=== PATIENT | male | born 1945 | race Caucasian/White ===

== ENCOUNTER 2016-05-06 07:48 | Emergency (ER) | payer MEDICARE, MEDICAID ==
[2016-05-06 08:08] VITALS: BP 161/86
--- NOTE | 2016-05-06 09:54 | UC ---
jesika Lake Timothy, scribed for Claire Arboleda MD on 05/06/16 at 0823 . Abdominal Pain Male HPI - HPI Summary HPI Summary: Luke Alcazar is a 71 yo male presenting to [facility] with 3/10 intermittent tingling and pain diffusely in his abd since the summer of 2015. He noticed 3 weeks ago a lump in the RLQ of his abdomen. He states the tingling can sometimes go down his right leg and up his right side to his mouth. He also states he has lost a lot of weight in the past 6 months. He denies any n/v/d. 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 He has a Hx of hernia, but denies any other pertinent MHx. - History of Current Complaint Stated Complaint: STOMACH PAIN TINGLING ON SIDE OF BODY Time Seen by Provider: 05/06/16 08:29 Hx Obtained From: Patient Onset/Duration: Gradual Onset, Lasting Weeks, Still Present Timing: Intermittent Episodes Lasting: - hours Severity Initially: Moderate Severity Currently: Moderate Pain Intensity: 3 Pain Scale Used: 0-10 Numeric Location: Diffuse, Discrete At: RLQ Radiates: No Character: Aching Aggravating Factor(s):: Nothing Alleviating Factor(s): Nothing Associated Signs And Symptoms: Positive: Other - weight loss, right sided body tingling. Negative: Constipation, Urinary Symptoms, Nausea, Vomiting, Diarrhea - Risk Factors Cardiac Risk Factors: Family History - Allergies/Home Medications Allergies/Adverse Reactions: Allergies Allergy/AdvReac Type Severity Reaction Status Date / Time Latex Allergy Eyes Verified 05/06/16 08:08 Itchy/Swollen/Red/Watery PMH/Surg Hx/FS Hx/Imm Hx - Additional Past Medical History Additional PMH: hernia Endocrine History Of: Denies: Diabetes, Thyroid Disease Cardiovascular History Of: Denies: Cardiac Disorders, Hypertension Respiratory History Of: Denies: COPD, Asthma GI/ History Of: Denies: Ulcer - Surgical History Surgical History: Yes Surgery Procedure, Year, and Place: Cataract 2011 - Family History Known Family History: Positive: Cardiac Disease, Other - no cancer or stroke; brother age 24 with rheumatic fever - Social History Alcohol Use: Occasionally Substance Use Type: Marijuana Smoking Status (MU): Never Smoked Tobacco Review of Systems Constitutional: Negative Skin: Negative Eyes: Negative ENT: Negative Respiratory: Negative Cardiovascular: Negative Gastrointestinal: Abdominal Pain - right side, Other - right sided abd lump Genitourinary: Negative Motor: Negative Neurovascular: Negative Musculoskeletal: Negative Neurological: Paresthesia - right side of abd, body, and mouth Psychological: Negative All Other Systems Reviewed And Are Negative: Yes Physical Exam Triage Information Reviewed: Yes Appearance: No Pain Distress, Well-Nourished, Ill-Appearing Vital Signs: Initial Vital Signs Temp 98.9 F 05/06/16 08:00 Pulse 112 05/06/16 08:00 Resp 18 05/06/16 08:00 BP 161/86 05/06/16 08:00 Pulse Ox 97 05/06/16 08:00 elevated BP noted, tachycardia noted Vital Signs Reviewed: Yes Eyes: Positive: Conjunctiva Clear ENT: Positive: Hearing grossly normal, TMs normal Neck: Positive: Supple, Nontender Respiratory: Positive: Chest non-tender, Lungs clear, Normal breath sounds, No respiratory distress Cardiovascular: Positive: RRR, No Murmur, Pulses Normal, Brisk Capillary Refill Abdomen Description: Positive: No Organomegaly, McBurney's Point Tenderness - and mass. Negative: Nontender - RLQ tenderness, Soft - 7 cm RLQ abd mass, Distended, Guarding, Hernia @, Peritoneal Signs, Pulsatile Mass Bowel Sounds: Positive: Present Musculoskeletal: Positive: Strength Intact, ROM Intact Neurological: Positive: Alert, Muscle Tone Normal Psychological Exam: Normal Skin Exam: Normal Abd Pain Male Course/Dx - Course Course Of Treatment: Luke Alcazar is a 71 yo male presenting to [facility] with right sided abd pain for several months, a lump on the right side of his abd 3 weeks ago, and tingling on his right side of his abd 3 weeks ago. After clinical examination, he will leave AMA to be seen at [facility]. - Differential Dx/Clinical Impression Differential Diagnosis/HQI/PQRI: Appendicitis, Constipation, Pancreatitis, Other - abdominal mass, internal hernia Provider Diagnoses: abdominal mass - Physician Notification/Consults Discussed Patient Care With: Sera Sanchez (PA at [facility]) - discussed PT condition, agrees to see Pt in [facility] Instructed by Provider To: MD Will See In ED Discharge - Discharge Plan Condition: Stable Disposition: AGAINST MEDICAL ADVICE Discharge Disposition Comment: will appear to [facility] by car Referrals: No Primary Care Phys,NOPCP [Primary Care Provider] - The documentation as recorded by the jesika dean Timothy accurately reflects the service I personally performed and the decisions made by me, Claire Arboleda MD.
== END 2016-05-06 08:53 | disposition left against medical advice (07) ==
LOC: UCEAST 07:48
DX: R19.03 Right lower quadrant abdominal swelling, mass and lump (principal); R63.4 Abnormal weight loss; R00.0 Tachycardia, unspecified; Z98.49 Cataract extraction status, unspecified eye; F12.90 Cannabis use, unspecified, uncomplicated
CPT/HCPCS: 99212; G0463

== ENCOUNTER 2016-05-06 09:12 | Emergency (ER) | payer MEDICARE, MEDICAID ==
--- NOTE | 2016-05-06 10:13 | ED ---
Abdominal Pain/Male - HPI Summary HPI Summary: 71M presents with abdominal pain for many months. He notice a lump in his abdomen at RLQ that feels like has gotten bigger. He states that his stools have gotten looser. He denies any dark tarry stools or blood in his stool. He denies any n/v or fever. He admits to unintentional weight loss and feels that he is loosing muscle mass for the past couple months. He denies any chest pain , SOB, decrease appetite. He has never had a colonoscopy and does not have a primary. He has not seen a doctor in many years. He states sometimes the pain in his RLQ goes to his back. He states he did have an inguinal hernia on his left side that resolved with herbal medication. He states that occasionally he gets this sharp nerve like pain from his shoulder that goes down his arm. The pain last for a minute and he says massaging the area makes it better. He denies any weakness, neck pain or previous injury. He denies any AMS or confusion. He states once he had the tingling down his entire right side. That resolved after a minute. - History of Current Complaint Chief Complaint: EDPaula Stated Complaint: ABD PAIN Time Seen by Provider: 05/06/16 09:36 Pain Intensity: 5 - Allergies/Home Medications Allergies/Adverse Reactions: Allergies Allergy/AdvReac Type Severity Reaction Status Date / Time Latex Allergy Eyes Verified 05/06/16 08:08 Itchy/Swollen/Red/Watery PMH/Surg Hx/FS Hx/Imm Hx Endocrine/Hematology History: Denies: Hx Diabetes, Hx Thyroid Disease Cardiovascular History: Denies: Hx Hypertension Respiratory History: Denies: Hx Asthma, Hx Chronic Obstructive Pulmonary Disease (COPD) GI History: Denies: Hx Ulcer - Surgical History Surgery Procedure, Year, and Place: 2011 Infectious Disease History: No Infectious Disease History: Denies: Hx Hepatitis, Hx Human Immunodeficiency Virus (HIV), History Other Infectious Disease, Traveled Outside the [place] in Last 30 Days - Family History Known Family History: Positive: Cardiac Disease, Other - no history of CA - Social History Alcohol Use: Occasionally Substance Use Type: Reports: Marijuana Smoking Status (MU): Never Smoked Tobacco Review of Systems Negative: Fever Negative: Chest Pain Negative: Shortness Of Breath Positive: Abdominal Pain - RLQ. Negative: Vomiting, Diarrhea, Nausea Negative: dysuria All Other Systems Reviewed And Are Negative: Yes Physical Exam Triage Information Reviewed: Yes Vital Signs On Initial Exam: Initial Vitals Temp Pulse Resp BP Pulse Ox 98.2 F 105 20 145/91 100 05/06/16 09:15 05/06/16 09:15 05/06/16 09:15 05/06/16 09:15 05/06/16 09:15 Vital Signs Reviewed: Yes Appearance: Positive: Well-Appearing Skin: Positive: Warm, Dry Head/Face: Positive: Normal Head/Face Inspection Eyes: Positive: Normal, Conjunctiva Clear ENT: Positive: Normal ENT inspection, Pharynx normal, TMs normal Neck: Positive: Nontender Respiratory/Lung Sounds: Positive: Clear to Auscultation, Breath Sounds Present Cardiovascular: Positive: Normal, RRR Abdomen Description: Positive: Soft, Other: - mass present in RLQ with mild tenderness on palpation Bowel Sounds: Positive: Present Musculoskeletal: Positive: Strength/ROM Intact - of upper extremities, Other - good pulses Neurological: Positive: Alert, Oriented to Person Place, Time, CN Intact II-III , Reflexes Intact - brisk bicep and tricep Diagnostics - Vital Signs Vital Signs Temp Pulse Resp BP Pulse Ox 05/06/16 09:15 98.2 F 105 20 145/91 100 - Laboratory Result Diagrams: 05/06/16 10:20 05/06/16 10:20 Lab Statement: Any lab studies that have been ordered have been reviewed, and results considered in the medical decision making process. - CT head CT Interpretation: No Acute Changes CT Interpretation Completed By: Radiologist abdomen CT Interpretation: Positive (See Comments) - IMPRESSION: LARGE MASS IN THE CECUM AND ASCENDING COLON HIGHLY SUSPICIOUS FOR A COLON CARCINOMA. THERE ARE MILDLY ENLARGED MESENTERIC LYMPH NODES SUSPICIOUS FOR METASTATIC DISEASE. RECOMMEND GI CONSULTATION AND COLONOSCOPY FOR FURTHER EVALUATION. CT Interpretation Completed By: Radiologist Abdominal Pain Fem Course/Dx - Course Course Of Treatment: 71M presents with mass in RLQ, weight loss over past couple months, no constipation, n/v. mass palpable in RLQ, CT head normal so do not suspect metatasis, CT abdomen shows mass, spoke with heme and will have follow up with dr poon on friday due to labs being stable and no evidence of obstruction, offered pain medication which patient refused, patient understands and agrees with plan - Diagnoses Provider Diagnoses: Abdominal mass, RLQ (right lower quadrant) Discharge - Discharge Plan Condition: Stable Disposition: HOME Patient Education Materials: Colorectal Cancer (GEN) Referrals: Giselle Poon MD [Medical Doctor] - [facility] [place] [facility]IAN REFERRAL [Outside] Additional Instructions: You have an appointment scheduled May 10 at 3:00pm arrive 15 mins early to see Dr Poon at [address] location Take Tylenol for pain every 6 hours as needed Establish care with primary care physician Return to ED if unable to have bowel movement, vomiting, or any new or worsening symptoms
--- NOTE | 2016-05-06 10:29 | RAD ---
INDICATION: Right-sided numbness COMPARISON: None TECHNIQUE: Noncontrast axial source images were acquired from the skull base to the vertex. FINDINGS: Ventricles/sulci: The ventricles and cisterns are normal in size and configuration for age. Brain parenchyma: There is no focal parenchymal finding, evidence of intracranial mass, or intracranial mass effect. Intracranial hemorrhage:None. Extra-axial spaces: There are no abnormal extra axial fluid collections or evidence of extra-axial mass. Calvarium: There is no calvarial fracture or other calvarial abnormality. Scalp: There is no evidence of scalp or extracalvarial soft tissue abnormality. Paranasal sinuses/mastoid: The paranasal sinuses and mastoid air cells are clear. Other: None. IMPRESSION: NEGATIVE EXAMINATION
[2016-05-06 10:37] LABS: Hematocrit 35 % (42-52); Mean Corpuscular HGB Conc 31 g/dl (31-36); Mean Corpuscular Hemoglobin 22 pg (27-31); Mean Corpuscular Volume 69 fL (80-94); Mean Platelet Volume 7 um3 (7.4-10.4); Red Blood Count 5.08 10^6/ul (4.0-5.4); Red Cell Distribution Width 16 % (10.5-15); White Blood Count 10.5 10^3/ul (3.5-10.8)
[2016-05-06 10:43] LABS: Add Diff/Slide Review? Slide Review Added; Comments Flag Yes
[2016-05-06 10:53] LABS: ALT 15 U/L (7-52); AST 15 U/L (13-39); Albumin 3.5 g/dL (3.2-5.2); Alkaline Phosphatase 38 U/L (34-104); Anion Gap 10 mmol/L (2-11); BUN/Creatinine Ratio 19.1 (8-20); Blood Urea Nitrogen 17 mg/dL (6-24); CO2 Carbon Dioxide 28 mmol/L (22-32); Calcium 9.4 mg/dL (8.6-10.3); Chloride 100 mmol/L (101-111); EGFR African American 108.4 (>60); EGFR Non-African American 84.3 (>60); Globulin 3.2 g/dL (2-4); Glucose 106 mg/dL (70-100); Lipase < 10 U/L (11.0-82.0); Magnesium 2.2 mg/dL (1.9-2.7); Sodium 138 mmol/L (133-145); Total Protein 6.7 g/dL (6.4-8.9)
[2016-05-06 11:15] LABS: TSH (Thyroid Stimulating Horm) 2.36 mcIU/mL (0.34-5.60)
[2016-05-06] MEDS ORDERED: Iohexol 300* (CONTRAST) 10 ML SDV IV ONE (11:29)
--- NOTE | 2016-05-06 12:19 | RAD ---
INDICATION: Mass right lower quadrant. COMPARISON: There are no prior studies available for comparison. TECHNIQUE: A CT scan of the abdomen and pelvis was performed with intravenous and oral contrast following intravenous injection of 97 ml of Omnipaque 300 nonionic contrast. Contiguous axial sections were obtained from the lung bases through the symphysis pubis. Images were reconstructed in the coronal and sagittal planes. FINDINGS: The lung bases are clear. No pleural effusion is present. The liver and spleen are within normal limits in size without significant focal abnormality. No calcified gallstones are seen. The pancreas appears to be within normal limits in size. The kidneys and adrenal glands are normal in size. No hydronephrosis is seen. There are a couple cysts present within the left kidney measuring up to 1.4 cm in size. The prostate gland is enlarged measuring 5.5 cm in transverse dimension. The aorta is normal in caliber with mild calcific plaque present. The stomach, small and large bowel appear nondistended. There is a mass in the cecum and proximal ascending colon causing circumferential thickening of the wall of the colon measuring up to 3.2 cm in thickness highly suspicious for a colon carcinoma. There are several enlarged mesenteric lymph nodes present medial to the ascending colon measuring up to 1.1 cm in transverse dimension suspicious for metastatic disease. There is also a slightly prominent retroperitoneal lymph node anterior to the aorta at the level of the left renal vein measuring 0.6 cm in transverse dimension. There is mild to moderate sigmoid diverticulosis without evidence for diverticulitis. No free intraperitoneal air or fluid is seen. No significant focal osseous abnormality is seen. IMPRESSION: LARGE MASS IN THE CECUM AND ASCENDING COLON HIGHLY SUSPICIOUS FOR A COLON CARCINOMA. THERE ARE MILDLY ENLARGED MESENTERIC LYMPH NODES SUSPICIOUS FOR METASTATIC DISEASE. RECOMMEND GI CONSULTATION AND COLONOSCOPY FOR FURTHER EVALUATION.
[2016-05-06 13:16] VITALS: BP 138/88
== END 2016-05-06 13:15 | disposition home or self-care (01) ==
LOC: ED 09:12
DX: R19.03 Right lower quadrant abdominal swelling, mass and lump (principal); R10.31 Right lower quadrant pain; R63.4 Abnormal weight loss; R00.0 Tachycardia, unspecified; Z98.49 Cataract extraction status, unspecified eye; F12.90 Cannabis use, unspecified, uncomplicated
CPT/HCPCS: 36415; 70450; 74177; 80053; 83605; 83690; 83735; 84443; 85025; 85060; 86141; 99282; Q9967

== ENCOUNTER 2016-05-20 07:46 | Inpatient (IN) | payer MEDICARE, MEDICAID ==
[~2016-05-20 07:46] MED LIST: Buffered Lidocaine 1% SYR 3ML* 3 ML/SYR SYRINGE INTRADERM ONE; Bupivacaine 0.5% W/EPI SDV* 30 ML VIAL ONE
[2016-05-20] MEDS ORDERED: Scopolamine 1.5 mg* PATCH ONE (07:49)
[2016-05-20] MEDS ORDERED: Scopolamine 1.5 mg* PATCH TRANSDERM SCH (08:00)
[2016-05-20] MEDS ORDERED: Midazolam* 1 MG/ML 5 ML VIAL (5 MG) ONE (09:00)
[2016-05-20] MEDS ORDERED: Ertapenem* 1 GM in NS 0.9% 50 ML* 50 ML IVPB ONE (09:00)
[2016-05-20] MEDS ORDERED: fentaNYL* 50 MCG/ML 2 ML VIAL (100 MCG VIAL) ONE ×4 (09:00→14:02)
[2016-05-20] MEDS ORDERED: Atracurium* 10 MG/ML 10 ML VIAL ONE (09:33)
[2016-05-20] MEDS ORDERED: Dexamethasone IV* 4 MG/ML 1 ML (4 MG) ONE (10:00)
[2016-05-20] MEDS ORDERED: Propofol* 10 MG/ML 20 ML BTL IV PUSH ONE (10:00)
[2016-05-20] MEDS ORDERED: Lidocaine 2% EPI 1:200000 MPF* 20 ML VIAL ONE (10:01)
[2016-05-20] MEDS ORDERED: Sodium Bicarbonate 8.4% SYR* 10 ML SYRINGE ONE (10:01)
[2016-05-20] MEDS ORDERED: EPHEDrine (Pressors)* 50 MG/ML VIAL ONE (10:01)
[2016-05-20] MEDS ORDERED: Ibuprofen TAB* 600 MG PO PRN (10:28)
[2016-05-20] MEDS ORDERED: HYDROcodone/ACETAMIN 5-325 MG* 1 TAB PO PRN (10:28)
[2016-05-20] MEDS ORDERED: EPHEDrine (Pressors)* 50 MG/ML VIAL IV PUSH PRN (10:28)
[2016-05-20] MEDS ORDERED: DiMENhydriNATE IV* 50 MG/ML VIAL IV PUSH PRN (10:33)
[2016-05-20] MEDS ORDERED: Ropivacaine 0.2% EPIDURAL* 200 MG/100 ML BAG EPIDURAL ONE (10:52)
[2016-05-20] MEDS ORDERED: Ondansetron INJ* 2 MG/ML VIAL ONE (12:02)
[2016-05-20] MEDS ORDERED: Bupivacaine 0.25% EPI 200,000* 30 ML SDV ONE (12:02)
--- NOTE | 2016-05-20 12:25 | SURGPN ---
Brief Operative Note - Surgery Procedures: Procedures Pre-OP Diagnoses: Acsending Colon mass Post-op Diagnosis: same Procedure: Open Right colectomy Surgeon: Whit Asst: Paulino Montez Anethesia: GETA, epidural Bylebyl EBL: <100 IVF: 1500cc LR Specimen: R Colon, en bloc with portion of small bowel Drains: none ponce: 250cc
[2016-05-20] MEDS: Ropivacaine 0.2% EPIDURAL* 200 MG/100 ML BAG EPIDURAL SCH ×2 (12:40→18:37)
[2016-05-20] MEDS: fentaNYL* 50 MCG/ML 2 ML VIAL (100 MCG VIAL) IV PRN ×5 (12:43→14:03)
[2016-05-20] MEDS ORDERED: HYDROmorphone INJ* 1 MG/ML CARPUJECT SYRINGE ONE (13:00)
[2016-05-20] MEDS: HYDROmorphone INJ* 1 MG/ML CARPUJECT SYRINGE IV PRN ×5 (13:36→14:11)
[2016-05-20] MEDS ORDERED: HYDROmorphone PCA* 20 MG/20 ML PCA.SYRING ONE (14:39)
[2016-05-20] MEDS ORDERED: HYDROmorphone INJ* 1 MG/ML CARPUJECT SYRINGE IV SCH (15:00)
[2016-05-20] MEDS ORDERED: Scopolamine 1.5 mg* PATCH TRANSDERM ONE (15:00)
[2016-05-20] MEDS ORDERED: Naloxone* 0.4 MG/ML 1 ML VIAL IV PUSH PRN (15:03)
[2016-05-20] MEDS ORDERED: HYDROmorphone PCA* 20 MG/20 ML PCA.SYRING PCA SCH (16:00)
[2016-05-20] MEDS: Heparin VIAL(*) 5000 UNITS/ML VIAL (FIVE THOUSAND) SUBCUT SCH ×2 (16:26→21:29)
[2016-05-21] MEDS: Ropivacaine 0.2% EPIDURAL* 200 MG/100 ML BAG EPIDURAL SCH ×3 (02:24→22:07)
--- NOTE | 2016-05-21 04:21 | OP ---
DATE OF OPERATION: 05/20/16 - ROOM #350 DATE OF : 45 SURGEON: Dr. Sherman. ASSISTANTS: 1. Meet Montez MD 2. RANULFO Machuca ANESTHESIOLOGIST: Dr. Solitario. ANESTHESIA: General anesthesia and epidural. PRE-OP DIAGNOSIS: Ascending colon mass. POST-OP DIAGNOSIS: Ascending colon mass. OPERATIVE PROCEDURE: Open right hemicolectomy with a portion of small bowel removed and primary anastomosis of the small bowel and of the right colon. BLOOD LOSS: Less than 100 cc. IV FLUIDS: 1500 cc of LR. SPECIMENS: Right colon en bloc block with portion of small bowel and additional portion of omentum. DRAINS: None. LIM CATHETER: 250 cc out. DESCRIPTION OF PROCEDURE: The patient was identified in the preoperative area. The case again discussed with him including the risks, benefits, and alternatives. We spoke of the possible complications, which included but not limited to bleeding, infection, injury to intraabdominal organs, need for additional procedures. The patient agreed and signed consent. He was marked, taken to the operating room and placed on the operating room table in a seated position. Epidural catheter was delivered. Please see anesthesia report for separate details. The patient was then placed supine on the table. General anesthesia was induced. The patient's abdomen was clipped of hair. A Lim catheter inserted. SCDs had been placed already. Preoperative antibiotics were on board. The patient's abdomen was prepped and draped in the standard surgical fashion and a time-out was performed. A midline incision was made approximately 4 fingerbreadths above the umbilicus and 3 fingerbreadths below the umbilicus. This was deepened down over layers of the anterior abdominal wall. Entry into the abdominal cavity was made. There was no evidence of free fluid. Bowel appeared intact. The expected lesion in the right side was identified. This was not attached to the anterior abdominal wall, but a drape of omentum was attached to this. Next, the small bowel was eviscerated and it appeared that the mid ileum was circled back and attached into the lesion itself, connected to the proximal portion of the cecum. This was gently dissected free from the colon until we realized that this may have been more dense and may be involved with the lesion and therefore, a decision was made to perform an en bloc resection of this portion of the small bowel as well. The appendix appeared normal. The transverse colon was then identified. This was within normal limits. The incision was extended superiorly approximately 3 cm and next, the omentum was freed up from the right colon. We ended up taking this omentum that had draped over the cecum and over the cancer and allowing us to stay en bloc on the colon as well. This led us to the mid portion of the transverse colon, omentum which was incised, and with traction inferiorly, we continued dissection to the hepatic flexure. We came down the white line of Toldt. The duodenum was identified and protected throughout. There was a small area of pancreas that was identified too, but this was not injured. Coming inferiorly to the base of the cecum and the appendix, we decided to transect the small bowel en bloc at this point with 60 mm TEJ stapling devices. We fired through windows of the small bowel mesentry and I took the small bowel mesentery with LigaSure device. This allowed the additional small bowel to be packed to the left side. With traction medially, we extended our peritoneal dissection inferiorly around the lesion and extending this to the terminal ileum. This mesentery was taken and with both blunt and sharp dissection we were able to free up the retroperitoneum from the bulky lesion. The ureter was identified and protected throughout and once we performed this, we were able to pull the large bowel superiorly as well. A point on the small bowel was identified, it should be noted that earlier in the procedure an implant on the distal portion of the small bowel was identified. This was removed and sent for a frozen section. The frozen section came back as calcification with no evidence of malignancy. This was going to be in part of our hemicolectomy resection in this portion of the small bowel. A point proximal to this area was chosen and window was made through the mesentery. The small bowel extending to the right colon was then freed up with electrocautery over the mesentry extending this to the mid transverse colon. Points on the transverse colon were also taken and the vasculature was taken with a LigaSure device with the exception of the ileocolic vessel, which was clamped and suture ligated with a 2-0 Polysorb. Once this mesentry was taken and there were 2 lymph nodes that were bulky within this, we then brought the small bowel in apposition to the colon. The anastomosis was created with an 80 mm TEJ stapling device. There was no tension. The common defect was transected with a 90 mm TA stapler firing across portions of the specimen as well. The specimen was then passed off and the corners of the TA stapler line were then dunked with 3-0 silk sutures. The crotch of the staple line was also reapproximated and then the mesenteric defect was then reapproximated with a running 2-0 Polysorb suture obliterating that defect. Hemostasis was then achieved in the retroperitoneum. We did irrigate and then turned our attention to the small bowel. Small bowel was then brought in apposition to each other where we had resected a small portion. The portion had been resected en bloc amounted to approximately 7 cm. A 60-mm TEJ stapler was fired for the reanastomosis and the common defect was closed with interrupted 2-0 silk sutures in a figure-of- eight fashion. We closed the mesenteric defect with 2-0 Polysorb suture in a running fashion and the crotch of the staple line was also sutured with a 3-0 silk suture. It appeared with good blood flow. No evidence of ischemia. The anastomosis was then dropped back into the abdomen. Attention was then turned towards the small bowel colon anastomosis, this appeared intact without evidence of ischemia. The abdomen was then irrigated with warm saline and this was suctioned off. It should also be noted that earlier in the case, the abdomen was explored, there were no lesions on the liver or in the stomach. The spleen appeared all normal as did the transverse colon, descending, and sigmoid colon. We ran the small bowel as well. There were no additional lesions other than the portion that was involved with the cancer itself and the small implant. Next, the abdomen was closed with interrupted #1 Polysorb suture in a figure-of - eight fashion starting inferiorly and then starting superiorly, we irrigated the wound and then reapproximated the skin with skin manju followed by sterile dressing. The patient tolerated the procedure well was woken up in the OR and transferred to the PACU in stable condition. CC: Dr. Giselle Shipman; Dr. Teo Taveras; [facility] * [id number]/[facility] #: [id number] [facility]
[2016-05-21] MEDS: Heparin VIAL(*) 5000 UNITS/ML VIAL (FIVE THOUSAND) SUBCUT SCH ×3 (05:25→22:04)
[2016-05-21 06:36] LABS: Hematocrit 26 % (42-52); Mean Corpuscular HGB Conc 30 g/dl (31-36); Mean Corpuscular Hemoglobin 21 pg (27-31); Mean Platelet Volume 7 um3 (7.4-10.4); Red Cell Distribution Width 16 % (10.5-15); White Blood Count 19.9 10^3/ul (3.5-10.8)
[2016-05-21 06:41] LABS: Comments Flag Yes; Mean Corpuscular Volume 69 fL (80-94)
[2016-05-21 07:04] LABS: Albumin 2.7 g/dL (3.2-5.2); BUN/Creatinine Ratio 19.2 (8-20); C Reactive Protein 85.82 mg/L (< 5.00); Calcium 8.1 mg/dL (8.6-10.3); EGFR African American 136.2 (>60); EGFR Non-African American 105.9 (>60); Globulin 2.2 g/dL (2-4); Potassium 4.7 mmol/L (3.5-5.0); Total Bilirubin 0.4 mg/dL (0.2-1.0); Total Protein 4.9 g/dL (6.4-8.9)
--- NOTE | 2016-05-21 09:52 | PN ---
Progress Note - Progress Note Note: Surgery Progress: S: Patient seen with and examined by Dr. Sherman. Some pain, controlled (epidural and EMERGENCY RESPONSE OFFICER). Ambulating. No N/V. Passing some liquid stool. No flatus. Using IS. O: Vital Signs - 8 hr 05/21/16 05/21/16 05/21/16 02:33 03:00 04:00 Temperature 98.1 F Pulse Rate 66 Respiratory 15 16 16 Rate Blood Pressure 103/55 (mmHg) O2 Sat by Pulse 100 Oximetry 05/21/16 05/21/16 05/21/16 05:00 06:00 07:10 Temperature Pulse Rate Respiratory 16 16 16 Rate Blood Pressure (mmHg) O2 Sat by Pulse 100 Oximetry 05/21/16 05/21/16 07:51 08:30 Temperature 98.3 F Pulse Rate 72 Respiratory 18 16 Rate Blood Pressure 104/56 (mmHg) O2 Sat by Pulse 100 Oximetry Intake and Output Last 24 Hours 05/19/16 05/20/16 05/21/16 05/22/16 06:59 06:59 06:59 06:59 Intake Total 3600 Output Total 1275 Balance 2325 Weight 141 lb 12.8 oz Intake: IV Fluids 3600 LR 3600 Oral 0 Output: Urine 300 Solomon 775 Estimated Blood Loss 200 Heart: reg Lungs: clear Abd: hypoactive BS; midline dsg clean and dry. Extre: no edema Labs: Laboratory Tests 05/06/16 05/06/16 05/21/16 10:20 10:20 06:10 WBC 19.9 H Hgb 11.0 L 8.0 L Glucose Albumin 3.5 05/21/16 06:10 WBC Hgb Glucose 150 H Albumin 2.7 L A: s/p R colectomy; small bowel rsxn; doing well overall P: d/c Solomon; sips H2O; change IVF to D5 1/2NS; await bowel fct; ambulate; labs 05/22
[2016-05-21] MEDS: D5W 1/2 NS 1000 ML BAG* 1,000 ML IV SCH ×2 (10:45→23:29)
[2016-05-21] MEDS: Pantoprazole IV* 40 MG IV SCH (10:48)
[2016-05-22] MEDS: Ropivacaine 0.2% EPIDURAL* 200 MG/100 ML BAG EPIDURAL SCH (05:56)
[2016-05-22] MEDS: Heparin VIAL(*) 5000 UNITS/ML VIAL (FIVE THOUSAND) SUBCUT SCH ×3 (05:57→22:59)
[2016-05-22 08:26] LABS: Hematocrit 28 % (42-52); Hemoglobin 8.3 g/dl (14.0-18.0); Mean Corpuscular HGB Conc 30 g/dl (31-36); Mean Corpuscular Hemoglobin 21 pg (27-31); Mean Corpuscular Volume 69 fL (80-94); Mean Platelet Volume 7 um3 (7.4-10.4); Red Blood Count 4.01 10^6/ul (4.0-5.4); Red Cell Distribution Width 16 % (10.5-15); White Blood Count 13.8 10^3/ul (3.5-10.8)
[2016-05-22 08:30] LABS: Add Diff/Slide Review? Slide Review Added; Comments Flag Yes
[2016-05-22] MEDS ORDERED: HYDROmorphone PCA* 20 MG/20 ML PCA.SYRING PCA SCH (09:59)
--- NOTE | 2016-05-22 10:13 | PN ---
Progress Note - Progress Note Note: Surgery Progress: S: POD #2. Some pain. 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 Sl nausea; no vomiting. Feeling some "rumbling". No flatus. O: Vital Signs - 8 hr 05/22/16 05/22/16 05/22/16 03:19 03:52 06:05 Temperature 97.4 F Pulse Rate 58 Respiratory 16 16 16 Rate Blood Pressure 113/61 (mmHg) O2 Sat by Pulse 100 97 95 Oximetry 05/22/16 05/22/16 08:00 08:03 Temperature 97.3 F Pulse Rate 63 Respiratory 16 20 Rate Blood Pressure 110/61 (mmHg) O2 Sat by Pulse 100 97 Oximetry Intake and Output Last 24 Hours 05/20/16 05/21/16 05/22/16 05/23/16 06:59 06:59 06:59 06:59 Intake Total 3600 2113 Output Total 1275 2700 Balance 2325 -587 Weight 141 lb 12.8 oz Intake: IV Fluids 3600 2012 D5W 1/2 NS 1375 LR 3600 638 Oral 0 100 Output: Urine 300 950 Solomon 775 1750 Estimated Blood Loss 200 Gen: appears well, NAD Heart: reg Lungs: clear; few crackles Abd: flat; nondistended; +BS; soft; mild, mostly L-sided tenderness; incision clean and dry; dsg changed Labs: Laboratory Tests 05/22/16 07:52 WBC 13.8 H Hgb 8.3 L A/P: s/p R colectomy, SB rsxn; overall, doing well; Solomon was never removed yesterday; will therefore remove today. Will let him have more clears; decrease Dilaudid.
[2016-05-22] MEDS: Pantoprazole IV* 40 MG IV SCH (11:09)
[2016-05-22] MEDS: D5W 1/2 NS 1000 ML BAG* 1,000 ML IV SCH (13:50)
[2016-05-22] MEDS: Ondansetron INJ* 2 MG/ML VIAL IV PRN (13:51)
[2016-05-22] MEDS ORDERED: Ketorolac INJ* 15 MG/ML 1 ML VIAL IV PUSH PRN (16:47)
--- NOTE | 2016-05-22 16:50 | PN ---
Progress Note - Progress Note SOAP: Subjective: Pt seen and examined. RANULFO Macdonald's note reviewed. Epidural is out and pt c/o abdominal pain. Intermittent. Also c/o nausea No flatus, no BM. Objective: af vss UO good abdo:soft/mild distension/ incisional tenderness. dressing intact no calf tenderness. labs noted Assessment: POD 2 R hemicolectomy, SB resection Plan: f/u path toradol clears only OOB DVT, Gi proph
[2016-05-22] MEDS: oxyCODONE/Acetamin 5/325 MG* TAB PO PRN (18:57)
[2016-05-22 20:55] LABS: Urine Bacteria Absent (Absent); Urine Bilirubin Negative (Negative); Urine Glucose Negative (Negative); Urine Nitrite Negative (Negative)
[2016-05-22] MEDS: Ketorolac INJ* 15 MG/ML 1 ML VIAL IV PUSH SCH (22:59)
[2016-05-23] MEDS: oxyCODONE/Acetamin 5/325 MG* TAB PO PRN (00:13)
[2016-05-23] MEDS: D5W 1/2 NS 1000 ML BAG* 1,000 ML IV SCH (03:20)
[2016-05-23] MEDS: Heparin VIAL(*) 5000 UNITS/ML VIAL (FIVE THOUSAND) SUBCUT SCH ×3 (05:32→23:10)
[2016-05-23] MEDS: Ketorolac INJ* 15 MG/ML 1 ML VIAL IV PUSH SCH ×4 (05:32→23:08)
[2016-05-23] MEDS: Pantoprazole IV* 40 MG IV SCH (09:40)
[2016-05-23] MEDS ORDERED: Morphine INJ* 2 MG/ML 1 ML CARPUJECT IV PRN (09:57)
[2016-05-23] MEDS ORDERED: Ferric Gluconate IV 25 MG in NS 0.9% 50 ML TEST DOSE IVPB ONE (11:00)
[2016-05-23] MEDS ORDERED: Ferric Gluconate IV* 125 MG in NS 0.9% 100 ML* 100 ML IVPB SCH (11:00)
--- NOTE | 2016-05-23 11:30 | SURGPN ---
Subjective - Introduction -: Events noted from last night. Patient was unable to void after Ponce catheter was d/c'ed yesterday AM. Feeling better now, denies any abdominal pain. No N/V, fever or chills. Denies any h/o BPH or urinary retention in the past. - Medications -: Active Medications Generic Name Dose Route Start Last Admin Trade Name Freq PRN Reason Stop Dose Admin Heparin Sodium (Porcine) 5,000 units 05/20/16 14:00 05/23/16 05:32 Heparin Vial(*) SUBCUT 5,000 units Q8HR LAKIA Administration Ferric Sodium Gluconate 52 mls @ 52 mls/hr 05/23/16 11:00 05/23/16 11:00 Complex 25 mg/ Sodium Chloride IVPB 05/23/16 11:59 52 mls/hr ONCE ONE Administration Ferric Sodium Gluconate 108 mls @ 108 mls/hr 05/23/16 12:00 Complex 100 mg/ Sodium IVPB 05/23/16 12:59 Chloride ONCE ONE Ketorolac Tromethamine 15 mg 05/22/16 23:30 05/23/16 05:32 Toradol Inj* IV PUSH 15 mg Q6H LAKIA Administration Morphine Sulfate 2 mg 05/23/16 09:57 Morphine Inj (Syringe)* IV Q4H PRN PAIN - MILD Ondansetron HCl 4 mg 05/22/16 13:29 05/22/16 13:51 Zofran Inj* IV 4 mg Q6H PRN Administration NAUSEA Oxycodone/Acetaminophen 1 tab 05/22/16 18:07 05/23/16 00:13 Percocet 5/325 Tab* PO 1 tab Q4H PRN Administration PAIN Pantoprazole Sodium 40 mg 05/21/16 10:00 05/23/16 09:40 Protonix Iv* IV 40 mg Q24H LAKIA Administration Pharmacy Profile Note 1 note 05/23/16 15:00 Scopolomine Patch Remove* PATCH OFF 05/23/16 15:01 ONCE ONE Tamsulosin HCl 0.4 mg 05/23/16 12:00 Flomax Cap* PO DAILY [facility] Objective - Objective -: Awake and alert, laying on bed. Appears comfortable, in NAD. - Intake and Output -: Intake & Output 05/21/16 05/22/16 05/23/16 05/24/16 06:59 06:59 06:59 06:59 Intake Total 3600 2113 2880 Output Total 1275 2700 3250 Balance 5365 -527 -370 Weight 141 lb 12.8 oz Intake: IV Fluids 3602012 1760 D5W 1/2 NS 1375 1760 LR 3600 638 Oral 0 100 1120 Output: Urine 300 950 200 Ponce 775 1750 2400 Residual 650 16 Fr 650 Estimated Blood Loss 200 Other: Estimated Void Small # Voids 6 Surgical Physical Exam - Comments -: Vitals reviewed, afebrile. Abdomen: soft, non-tender and non-distended. Incision C/D/I. Ponce with clear urine. Ext: no edema. 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 Post-op ileus, await bowl function. Urinary retention. - Plan Additional Comments: Urological consult was obtained. I spoke with for recommendations. He advised starting pt on Flomax 0.4mg once daily. Will also keep ponce cath, and pt will go home with Ponce as well. He will F/U with urology as an outpatient. Encourage activity and ambulate as tolerated. Clear liquid diet for now, await bowel functions.
[2016-05-23] MEDS: Tamsulosin CAP* 0.4 MG PO SCH (11:46)
[2016-05-23] MEDS ORDERED: Ferric Gluconate IV* 100 MG in NS 100 ML - AFTER TEST DOSE IVPB ONE (12:00)
--- NOTE | 2016-05-23 12:05 | PN ---
Progress Note - Progress Note SOAP: Subjective: doing well post op. some pain yesterday related to urinary retention. feels better today. no BMs yet Objective: Vital Signs Temp Pulse Resp BP Pulse Ox 97.6 F 60 16 123/65 99 05/23/16 07:31 05/23/16 07:31 05/23/16 09:43 05/23/16 07:31 05/23/16 09:43 sitting up in NAD perr eomi op moist CTA bl s1 s2 nl soft, well healing midline scar with manju no le edema Laboratory Results - last 24 hr 05/22/16 20:45 Urine Color Yellow Urine Appearance Clear Urine pH 8.0 Ur Specific [place] 1.005 L Urine Protein Negative Urine Ketones Negative Urine Blood 2+ H Urine Nitrate Negative Urine Bilirubin Negative Urine Urobilinogen Negative Ur Leukocyte Esterase 1+ H Urine WBC (Auto) 1+(6-10/hpf) H Urine RBC (Auto) 3+(>10/hpf) H Ur Squamous Epith Cells Present H Urine Bacteria Absent Urine Glucose Negative Assessment: 71 yo M who presented with an obstructing right colonic mass now sp resection. His pathology returned AFTER I saw him and did show a T3N1c tumor, N1c related to a tumor deposit in the peritumoral veins. Regardless he would have met criteria for adjuvant chemotherapy given that he was obstructed and poorly differentiated. I will discuss this with him at our office visit. I did take the liberty of giving him one dose of ferrlicit which he is inpatient, and on discharge please start once a day iron with vitamin C. I will see him back in my [facility] office on June 07 at 2 pm. please provide him with this appointment. Plan: []
[2016-05-23] MEDS: Ondansetron INJ* 2 MG/ML VIAL IV PRN (12:58)
[2016-05-23] MEDS ORDERED: Scopolamine PATCH Remove* 1 NOTE MISC PATCH OFF ONE (15:00)
[2016-05-24] MEDS: Ketorolac INJ* 15 MG/ML 1 ML VIAL IV PUSH SCH ×3 (05:35→17:28)
[2016-05-24] MEDS: Heparin VIAL(*) 5000 UNITS/ML VIAL (FIVE THOUSAND) SUBCUT SCH ×3 (05:38→22:21)
[2016-05-24] MEDS: Tamsulosin CAP* 0.4 MG PO SCH (08:41)
--- NOTE | 2016-05-24 09:46 | SURGPN ---
Subjective - Introduction -: Doing about the same, no changes since yesterday. Tolerating full liquid diet now. Still no flatus. Ambulatory down the basilio yesterday and this AM. No complaints. - Medications -: Active Medications Generic Name Dose Route Start Last Admin Trade Name Freq PRN Reason Stop Dose Admin Heparin Sodium (Porcine) 5,000 units 05/20/16 14:00 05/24/16 05:38 Heparin Vial(*) SUBCUT 5,000 units Q8HR LAKIA Administration Ketorolac Tromethamine 15 mg 05/22/16 23:30 05/24/16 05:35 Toradol Inj* IV PUSH 15 mg Q6H LAKIA Administration Morphine Sulfate 2 mg 05/23/16 09:57 Morphine Inj (Syringe)* IV Q4H PRN PAIN - MILD Ondansetron HCl 4 mg 05/22/16 13:29 05/23/16 12:58 Zofran Inj* IV 4 mg Q6H PRN Administration NAUSEA Oxycodone/Acetaminophen 1 tab 05/22/16 18:07 05/23/16 00:13 Percocet 5/325 Tab* PO 1 tab Q4H PRN Administration PAIN Pantoprazole Sodium 40 mg 05/21/16 10:00 05/23/16 09:40 Protonix Iv* IV 40 mg Q24H LAKIA Administration Tamsulosin HCl 0.4 mg 05/23/16 12:00 05/24/16 08:41 Flomax Cap* PO 0.4 mg DAILY LAKIA Administration Objective - Objective -: Awake and alert, comfortable on bed, finished eating breakfast, in NAD. - Intake and Output -: Intake & Output 05/22/16 05/23/16 05/24/16 05/25/16 06:59 06:59 06:59 06:59 Intake Total 2113 2880 2768 Output Total 2700 3250 2750 Balance -587 -370 18 Intake: IV Fluids 2012 1760 500 D5W 1/2 NS 1375 1760 500 LR 638 IVPB 108 D5W 1/2 NS 108 Oral 100 1120 2160 Output: Urine 950 200 Solomon 1750 2400 2750 Residual 650 16 Fr 650 Other: Estimated Void Small # Voids 6 Surgical Physical Exam - Comments -: Vitals reviewed, afebrile. Abdomen soft, non-tender and non-distended. Incision clean, dry and intact. Solomon with clear urine. Ext. no edema. Assessment and Plan - Assessment -: A 71 y/o gentleman, s/p R colectomy due to invasive adenocarcinoma. Post operative ileus. Urinary retention. - Plan Additional Comments: Will keep full liquid diet for now, awaiting bowel functions. Solomon to stay. Encourage activity and PO intake as tolerated.
[2016-05-24] MEDS: Pantoprazole IV* 40 MG IV SCH (10:34)
[2016-05-24] MEDS ORDERED: Acetaminophen TAB* 325 MG PO PRN (22:08)
[2016-05-24] MEDS: NS 0.9% 1000 ML* 1,000 ML IV SCH (22:20)
[2016-05-25] MEDS: NS 0.9% 1000 ML* 1,000 ML IV SCH (05:00)
[2016-05-25] MEDS: Heparin VIAL(*) 5000 UNITS/ML VIAL (FIVE THOUSAND) SUBCUT SCH ×3 (05:40→21:28)
[2016-05-25 08:27] LABS: Hematocrit 30 % (42-52); Hemoglobin 9.3 g/dl (14.0-18.0); Mean Corpuscular HGB Conc 31 g/dl (31-36); Mean Corpuscular Hemoglobin 21 pg (27-31); Mean Platelet Volume 7 um3 (7.4-10.4); Red Blood Count 4.34 10^6/ul (4.0-5.4); Red Cell Distribution Width 16 % (10.5-15); White Blood Count 9.4 10^3/ul (3.5-10.8)
[2016-05-25 08:30] LABS: Comments Flag Yes; Mean Corpuscular Volume 68 fL (80-94)
[2016-05-25 08:41] LABS: BUN/Creatinine Ratio 17.7 (8-20); Calcium 8.7 mg/dL (8.6-10.3); EGFR African American 124.3 (>60); EGFR Non-African American 96.7 (>60); Potassium 3.7 mmol/L (3.5-5.0)
[2016-05-25] MEDS: Pantoprazole IV* 40 MG IV SCH (09:41)
[2016-05-25] MEDS: Tamsulosin CAP* 0.4 MG PO SCH (09:41)
[2016-05-25] MEDS: oxyCODONE/Acetamin 5/325 MG* TAB PO PRN (10:53)
--- NOTE | 2016-05-25 11:30 | PN ---
Progress Note - Progress Note SOAP: Subjective: Pt seen and examined. C/o abdo pain. He was curled up overnight. positive nausea, no appetite. no flatus today, but BM x2 and flatus yesterday. Objective: af vss uo okay LR at 125 lungs poor insp effort, otherwise clear abdo: nore distended, tender at incision and on right. no rebound hypoactive bs no calf tenderness labs noted Assessment: POD5 r hemicolectomy, sb resection; ileus Plan: pain control OOB GI, dvt proph encourage PO change IVF to D5.5
[2016-05-25] MEDS: D5W 1/2 NS KCl 20 Meq 1000 ML* 1,000 ML IV SCH (11:39)
[2016-05-25] MEDS: Ketorolac INJ* 15 MG/ML 1 ML VIAL IV PUSH SCH ×2 (12:14→17:54)
[2016-05-26] MEDS: Ketorolac INJ* 15 MG/ML 1 ML VIAL IV PUSH SCH ×5 (00:03→23:44)
[2016-05-26] MEDS: D5W 1/2 NS KCl 20 Meq 1000 ML* 1,000 ML IV SCH (00:08)
[2016-05-26] MEDS: Heparin VIAL(*) 5000 UNITS/ML VIAL (FIVE THOUSAND) SUBCUT SCH ×3 (05:48→21:58)
[2016-05-26 08:20] LABS: Hematocrit 31 % (42-52); Hemoglobin 9.7 g/dl (14.0-18.0); Mean Corpuscular HGB Conc 31 g/dl (31-36); Mean Corpuscular Hemoglobin 22 pg (27-31); Mean Platelet Volume 7 um3 (7.4-10.4); Red Cell Distribution Width 16 % (10.5-15); White Blood Count 10.5 10^3/ul (3.5-10.8)
[2016-05-26 08:25] LABS: Comments Flag Yes
[2016-05-26 08:26] LABS: Mean Corpuscular Volume 69 fL (80-94)
[2016-05-26] MEDS: Pantoprazole IV* 40 MG IV SCH (08:26)
[2016-05-26] MEDS: Tamsulosin CAP* 0.4 MG PO SCH (08:26)
[2016-05-26 08:37] LABS: BUN/Creatinine Ratio 14.6 (8-20); Calcium 8.8 mg/dL (8.6-10.3); EGFR African American 119.1 (>60); EGFR Non-African American 92.6 (>60); Magnesium 1.9 mg/dL (1.9-2.7); Phosphorus 3.6 mg/dL (2.5-5.0)
--- NOTE | 2016-05-26 11:42 | PN ---
Progress Note - Progress Note SOAP: Subjective: Pt seen and examined. Feeling much better today. no nausea. Pos. BM, flatus. appetite returning Objective: af vss UO good lungs clear abdo: still distended,nontender normooactive bs no calf tenderness labs noted Assessment: POD5 r hemicolectomy, sb resection; ileus resolving Plan: pain control OOB GI, dvt proph encourage PO IVL likely d/c tomorrow
[2016-05-27] MEDS: Heparin VIAL(*) 5000 UNITS/ML VIAL (FIVE THOUSAND) SUBCUT SCH (05:41)
[2016-05-27] MEDS: Ketorolac INJ* 15 MG/ML 1 ML VIAL IV PUSH SCH ×2 (05:41→13:05)
[2016-05-27] MEDS: Tamsulosin CAP* 0.4 MG PO SCH (08:24)
[2016-05-27] MEDS: Pantoprazole IV* 40 MG IV SCH (08:24)
--- NOTE | 2016-05-27 09:40 | SURGPN ---
Subjective - Introduction -: Reports doing well, no complaints. Tolerating low residue diet, multiple BMs. - Medications -: Active Medications Generic Name Dose Route Start Last Admin Trade Name Freq PRN Reason Stop Dose Admin Acetaminophen 650 mg 05/24/16 22:08 Tylenol Tab* PO Q6H PRN PAIN Heparin Sodium (Porcine) 5,000 units 05/20/16 14:00 05/27/16 05:41 Heparin Vial(*) SUBCUT 5,000 units Q8HR LAKIA Administration Ketorolac Tromethamine 15 mg 05/25/16 12:00 05/27/16 05:41 Toradol Inj* IV PUSH 15 mg Q6H LAKIA Administration Morphine Sulfate 2 mg 05/23/16 09:57 Morphine Inj (Syringe)* IV Q4H PRN PAIN - MILD Ondansetron HCl 4 mg 05/22/16 13:29 05/23/16 12:58 Zofran Inj* IV 4 mg Q6H PRN Administration NAUSEA Oxycodone/Acetaminophen 1 tab 05/22/16 18:07 05/25/16 10:53 Percocet 5/325 Tab* PO 1 tab Q4H PRN Administration PAIN Pantoprazole Sodium 40 mg 05/21/16 10:00 05/27/16 08:24 Protonix Iv* IV 40 mg Q24H LAKIA Administration Tamsulosin HCl 0.4 mg 05/23/16 12:00 05/27/16 08:24 Flomax Cap* PO 0.4 mg DAILY LAKIA Administration Objective - Objective -: Awake and alert, finished eating breakfast, appears comfortable. - Intake and Output -: Intake & Output 05/25/16 05/26/16 05/27/16 05/28/16 06:59 06:59 06:59 06:59 Intake Total 1810 2849 2420 Output Total 750 1400 2400 Balance 1060 1449 20 Intake: IV Fluids 990 1929 D5 1/2 NS with 20 MEQ 731 D5W 1/2 NS 40 meq KCL 208 NS (0.9%) 990 990 Oral 017 776 1518 Output: Urine 500 Ponce 750 1400 1900 Other: Estimated Stool Amount Medium Surgical Physical Exam - Comments -: VSS, A-fib Abdomen, soft, NT/ND. Incision C/D/I. Pnoce with clear urine. I/O reviewed. Ext. no calf tenderness, no edema Assessment and Plan - Assessment -: A 71 y/o, s/p right colectomy, doing well, and ready to d/c to home. - Plan Surgical Plan of Care: Discontinue IV, Discharge Additional Comments: He has done well in the past few days. Will plan on discharge to home with ponce and Flomax per Dr. Jansen.
[2016-05-27 12:52] VITALS: BP 116/68
--- NOTE | 2016-05-28 05:28 | DS ---
DISCHARGE SUMMARY: DATE OF ADMISSION: 05/20/16 DATE OF DISCHARGE: 05/27/16 PATIENT OF: Dr. Ti Sherman. ADMISSION DIAGNOSIS: Ascending colon mass. DISCHARGE DIAGNOSES: 1. Ascending colon mass. 2. Hypokalemia. 3. Urinary retention. ADMITTING PHYSICIAN: Ti Sherman MD CONSULTATION: Eliazar Jansen MD PROCEDURE: Right colon resection with removal of portion of the small bowel and primary anastomosis of the small bowel and of the right colon on 05/20/16. HISTORY OF PRESENT ILLNESS: Mr. Alcazar is a pleasant 71-year-old gentleman. He was seen in the [facility] for consultation regarding changes in bowel habits and recent diagnosis of anemia. The patient has never had any colonoscopy in the past and he was strongly advised to go ahead and get colonosco pies for further evaluation of his symptoms. Unfortunately, he was found to have a mass on his asce nding colon for which he returned to the office to discuss proceeding with surgery. After discussin g the rationale indication, risks, and benefits and a possibility of complications including but not limited to bleeding, infection, or injury to intraabdominal organs, the patient consented to go for surgery. He was admitted on the same day of operation on 05/20/16. The surgery went quite smoothl y with no immediate complications. 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 He also has an epidural catheter. He was ambulatory with a little bit of difficulty on the first day. [place] [id number], but no left shift was noted. His Solomon catheter was initially discontinued on the st day postoperatively and sips of clear liquid was started. The patient continued to improve slowly and he was unfortunately suffering from a postoperative ileus for which an NG tube was introduced f or resolution of his SBO. He also has developed a urinary retention on the third day postoperatively for which a Solomon catheter was reintroduced as well as a urological consult was obtained. The leida ent was started on Flomax and I spoke with Dr. Jansen who recommended leaving the Solomon catheter in t he patient to take home upon discharge and he follow up with him in the office after surgery. The p atient after that started to improve slowly. His diet started on clear liquid on the third day and gradually advanced to low residual diet on the night before discharge. He continued to improve and his laboratory workup was repeated and showed resolution of his leukocytosis. On discharge morning, the patient was ambulatory and he felt better. He was tolerating his diet and ready to go home. DISCHARGE MEDICATIONS: His discharge medication include Percocet 5/325 mg as needed for pain as wel l as Flomax 0.4 mg p.o. daily. PROBLEM LIST: Ascending colon mass, status post right hemicolectomy and small bowel resection with primary anastomosis on 05/20/16. RANULFO GIVENS [id number]/[facility] #: [id number]
== END 2016-05-27 13:40 | disposition home health service (06) | DRG 330 ==
LOC: AA 07:46 → SSU 15:16
PROVIDERS: ADMIT Surgery; ATTEND Surgery
PROC: 0DTF0ZZ Resection of Right Large Intestine, Open Approach (ICD-10-PCS; principal; 2016-05-20 09:00)
PROC: 0T9B70Z Drainage of Bladder with Drainage Device, Via Natural or Artificial Opening (ICD-10-PCS; 2016-05-24)
DX: C18.2 Malignant neoplasm of ascending colon (principal); R44.3 Hallucinations, unspecified; K56.60 Unspecified intestinal obstruction; K56.7 Ileus, unspecified; R33.9 Retention of urine, unspecified; D72.829 Elevated white blood cell count, unspecified; E87.6 Hypokalemia; Z91.040 Latex allergy status; Z98.49 Cataract extraction status, unspecified eye; Z87.891 Personal history of nicotine dependence
CPT/HCPCS: 36415; 62323; 80048; 80053; 81003; 81015; 83735; 84100; 85025; 86140; 87086; 88305; 88309; 88311; 88331; 88341; 88342; 94760; 99233; A9270-GY; C1776; J1100; J1170; J1335; J1644; J1885; J2250; J2405; J2704; J2795; J2916; J3010

== ENCOUNTER 2018-07-16 16:36 | Emergency (ER) | payer MEDICARE, MEDICAID ==
--- NOTE | 2018-07-16 16:39 | UC ---
Skin Complaint HPI - HPI Summary HPI Summary: 73 yo male presents with low back pain and recent tick bite. He tells me that about a week ago he had a tick bite to his left arm that he removed within a few hours. Says it was not engorged. About 3 days later he developed low back pain and muscle aches and felt hot/cold. He is concerned that he has lyme disease. He denies having a rash. Denies back injury, dysuria, abdominal pain, n /v, numbness, radiation of pain, saddle anesthesia, or loss of bowel/bladder function. He has a hx of colon cancer with hemicolectomy. - History of Current Complaint Time Seen by Provider: 07/16/18 16:37 Stated Complaint: TICK Hx Obtained From: Patient Onset/Duration: Sudden Onset Current Severity: None - Allergy/Home Medications Allergies/Adverse Reactions: Allergies Allergy/AdvReac Type Severity Reaction Status Date / Time latex Allergy Eyes Verified 07/16/18 16:45 Itchy/Swollen/Red/Watery, rash PMH/Surg Hx/FS Hx/Imm Hx - Additional Past Medical History Additional PMH: Colon cancer - Surgical History Surgical History: Yes Surgery Procedure, Year, and Place: Cataract 2011,. 05/2016 Right hemicolectomy with small bowel resection - Family History Known Family History: Positive: Cardiac Disease, Other - no history of CA - Social History Occupation: Retired Lives: With Family Alcohol Use: Occasionally Substance Use Type: Marijuana Smoking Status (MU): Never Smoked Tobacco When Did the Patient Quit Smoking/Using Tobacco: quit in 1970 - Immunization History Most Recent Influenza Vaccination: none Most Recent Tetanus Shot: unknown Most Recent Pneumonia Vaccination: no Review of Systems All Other Systems Reviewed And Are Negative: Yes Constitutional: Positive: Negative Skin: Positive: Other - Tick bite Respiratory: Positive: Negative Cardiovascular: Positive: Negative Gastrointestinal: Positive: Negative Neurovascular: Positive: Negative Musculoskeletal: Positive: Other: - Low back pain Neurological: Positive: Negative Psychological: Positive: Negative Physical Exam - Summary Physical Exam Summary: GENERAL: NAD. WDWN. No pain distress. SKIN: LEFT ARM: there is a 2mm diameter area of mild erythema. No streaking, bleeding, or drainage. NECK: Supple. Nontender. No lymphadenopathy. CHEST: CTAB. No r/r/w. No accessory muscle use. Breathing comfortably and in no distress. CV: RRR. Without m/r/g. Pulses intact. Cap refill <2seconds MSK: NTTP over lumbar paraspinal muscles. Pain with flexion and extension of spine. Negative SLR b/l for low back pain without radiation. Strength 5/5 B/L LEs including dorsiflexion and plantar flexion. FROM B/L LEs. No edema. NEURO: Alert. PSYCH: Age appropriate behavior. Triage Information Reviewed: Yes Vital Signs: Vital Signs: Temp Pulse Resp BP Pulse Ox 98.7 F 67 16 140/81 99 07/16/18 16:38 07/16/18 16:38 07/16/18 16:38 07/16/18 16:38 07/16/18 16:38 Vital Signs Reviewed: Yes Course/Dx - Course Course Of Treatment: I do not suspect pt has lyme disease as he removed the tick rather quickly and myalgia type symptoms of lyme typically present >1month after tick bite. Given his low back pain without injury or TTP on exam and hx of colon an XR lumbar spine was ordered to assess for malignancy - although pt had a negative CT pelvis about 2 months ago. XR lumbar spine: IMPRESSION: Radiographic findings are consistent with degenerative disc disease of the lumbar spine. Will treat back pain as a strain and have him rest, apply heat, and take ibuprofen as directed. Advised to have f/u with PCP next week for a recheck - Diagnoses Provider Diagnosis: Tick bite, Low back pain Discharge - Sign-Out/Discharge Documenting (check all that apply): Patient Departure All imaging exams completed and their final reports reviewed: Yes - Discharge Plan Condition: Stable Disposition: HOME Patient Education Materials: Lyme Disease (ED), Tick Bite (ED) Referrals: Giselle Shipman MD [Primary Care Provider] - Additional Instructions: TICK BITE: You have been bitten by a tick. Once the tick is removed, these "bites" usually cause no problems. Tick fever, tick paralysis, [place] Spotted fever, and Lyme disease are uncommon -- but you should mention this tick bite to your doctor if you develop unusual symptoms in the next several weeks. If you develop any of the following, please see your physician promptly: (1) Fever, chills, or generalized malaise associated with a headache. (2) A red round area at the site of the bite (or elsewhere) (3) Joint pain, joint swelling or generalized weakness. (4) Redness, swelling, or drainage at the site of the bite. Your X-Ray today was normal. I suspect your low back pain is due to a muscle strain and should improve in a few days with rest and ibuprofen as directed. Please schedule an appointment next week with your primary doctor to go over your lab results and for a recheck of your back pain. - Billing Disposition and Condition Condition: STABLE Disposition: Home - Attestation Statements Provider Attestation: Per institutional requirements, I have reviewed the chart, however, I was not consulted specifically or made aware of this patient by the midlevel provider. I did not personally evaluate, interact with , or disposition this patient.
[2018-07-16 16:45] VITALS: BP 140/81
== END 2018-07-16 17:40 | disposition home or self-care (01) ==
LOC: UCEAST 16:36
DX: M54.5 Low back pain (principal); S40.862A Insect bite (nonvenomous) of left upper arm, initial encounter; W57.XXXA Bitten or stung by nonvenomous insect and other nonvenomous arthropods, initial encounter; Z91.040 Latex allergy status; Z87.891 Personal history of nicotine dependence; C18.9 Malignant neoplasm of colon, unspecified
CPT/HCPCS: 36415; 72110; 86618; 99211; G0463

== ENCOUNTER 2019-04-18 07:12 | Emergency (ER) | payer MEDICARE, MEDICAID ==
[2019-04-18 07:24] VITALS: BP 164/96
[2019-04-18] MEDS ORDERED: Albuterol 2.5 MG/3 ML NEB.SOL* (0.083%) INH ONE (07:45)
--- NOTE | 2019-04-18 08:30 | UC ---
Respiratory Complaint HPI - HPI Summary HPI Summary: 74-year-old male comes in with chief complaint of chest congestion and shortness of breath with fevers. Patient started with upper respiratory tract infection symptoms about 3 days ago. It's moved into his chest that he's having chest congestion. Overnight patient was having shortness of breath difficulty when he was laying down. Also is having fevers. He tried some over- the-counter medicine which did help some on previous night's. Overnight last night and they did not. - History of Current Complaint Chief Complaint: UCGeneralIllness Stated Complaint: RESP COMPLAINT Time Seen by Provider: 04/18/19 07:28 Pain Intensity: 0 - Allergies/Home Medications Allergies/Adverse Reactions: Allergies Allergy/AdvReac Type Severity Reaction Status Date / Time latex Allergy Eyes Verified 04/18/19 07:24 Itchy/Swollen/Red/Watery, rash Home Medications: Home Medications Acetaminophen TAB* [Tylenol TAB*] 325 mg PO Q4H PRN 04/18/19 [History Confirmed 04/18/19] PMH/Surg Hx/FS Hx/Imm Hx Previously Healthy: Yes - colon cancer - Surgical History Surgical History: Yes Surgery Procedure, Year, and Place: Cataract 2011,. 05/2016 Right hemicolectomy with small bowel resection - Family History Known Family History: Positive: Cardiac Disease, Other - no history of CA - Social History Alcohol Use: Occasionally Substance Use Type: Marijuana Substance Use Comment - Amount & Last Used: moderate Smoking Status (MU): Former Smoker When Did the Patient Quit Smoking/Using Tobacco: quit in 1970 - Immunization History Most Recent Influenza Vaccination: none Most Recent Tetanus Shot: unknown Most Recent Pneumonia Vaccination: no Review of Systems All Other Systems Reviewed And Are Negative: Yes Constitutional: Positive: Fever, Other - SEE HPI Skin: Positive: Negative Eyes: Positive: Negative ENT: Positive: Nasal Discharge, Sinus Congestion Respiratory: Positive: Shortness Of Breath, Cough, Other - SEE HPI Cardiovascular: Positive: Negative Gastrointestinal: Positive: Negative Motor: Positive: Negative Neurovascular: Positive: Negative Musculoskeletal: Positive: Negative. Negative: Calf Tenderness, Edema Neurological: Positive: Negative Psychological: Positive: Negative Is Patient Immunocompromised?: No Physical Exam Triage Information Reviewed: Yes Appearance: No Pain Distress, Well-Nourished, Ill-Appearing - MILD Vital Signs: Initial Vital Signs Temp 98.9 F 04/18/19 07:18 Pulse 107 04/18/19 07:18 Resp 19 04/18/19 07:18 BP 164/96 04/18/19 07:18 Pulse Ox 94 04/18/19 07:18 Vital Signs Reviewed: Yes Eye Exam: Normal Eyes: Positive: Conjunctiva Clear ENT: Positive: Pharynx normal, Nasal drainage, TMs normal Neck: Positive: Supple Respiratory: Positive: No respiratory distress, Rhonchi Cardiovascular: Positive: RRR Musculoskeletal: Positive: Strength Intact, ROM Intact, No Edema - NO CALF TENDERNESS TO PALPATION Neurological: Positive: Alert, Muscle Tone Normal Psychological: Positive: Age Appropriate Behavior Skin Exam: Normal Respiratory Course/Dx - Course Course Of Treatment: Astrophysics Teacher: Martin Miller Daniel, ([id number]) Dental Claims Processor: REE ( SUSANANCE) Report Date: 04/18/2019 08:11:00 Report Status: Final ====== Start of Report Content Patient Name: MONTANA SNYDER Medical Record# : [id number] Ordering Physician: Levy Caldwell MD Acct.#: [id number] : 1945 Age: 74 Sex: M Location: [facility] Exam Date: 736 ADM Status: REG ER Order Information: CHEST PA LAT 2 S Accession Number: [id number] CPT: 56253 HISTORY: cough,sob,congestion,fever COMPARISONS: None relevant available at the time of dictation. VIEWS: 4: Frontal dual-energy and lateral views of the chest. FINDINGS: CARDIOMEDIASTINAL SILHOUETTE: The cardiomediastinal silhouette is normal. BERLIN: The berlin are normal. PLEURA: The costophrenic angles are sharp. No pleural abnormalities are noted. LUNG PARENCHYMA: The lungs are clear. ABDOMEN: The upper abdomen is clear. There is no subphrenic gas. BONES AND SOFT TISSUES: No bone or soft tissue abnormalities are noted. OTHER: None. IMPRESSION: NO ACTIVE CARDIOPULMONARY DISEASE. <Electronically signed by Martin Miller MD in OV> 04/18/19804 Dictated By: Martin Miller MD Dictated Date/Time: 04/18/19804 Transcribed Date/Time: 04/18/19804 Copy to: CC:Giselle Enriquez MD; Levy Caldwell MD Imaging - [facility] Imaging - [place] [facility] [address] [address] ph [phone]) ph ([phone]) ph ([phone]) End of Report Content I discussed the x-rays with the patient. No pneumonia seen. Patient did have some improvement in clinic with an albuterol nebulizer. Due to the fevers and the worsening shortness of breath we will go ahead and treat with antibiotics and also albuterol inhaler and a Medrol Dosepak. I let the patient know that if he got worse she should go to the emergency department. - Differential Dx/Diagnosis Provider Diagnosis: Bronchitis with bronchospasm Discharge ED - Sign-Out/Discharge Documenting (check all that apply): Patient Departure All imaging exams completed and their final reports reviewed: Yes - Discharge Plan Condition: Stable Disposition: HOME Prescriptions: Albuterol HFA INHALER* [Ventolin HFA Inhaler*] 2 puff INH Q4H PRN #1 mdi PRN Reason: Wheezing DOXYcycline CAP(*) [DOXYcycline 100MG CAP(*)] 100 mg PO BID #20 cap methylPREDNISolone [Medrol Dosepak 4 MG*] 0 mg PO .SEE ZOHREH INSTRUCTION #1 tab Patient Education Materials: Acute Bronchitis (ED), Bronchospasm (ED) Referrals: Giselle Enriquez MD [Primary Care Provider] - Additional Instructions: FOLLOW UP WITH YOUR DOCTOR. Try [id number] medications with guaifenesin which is an expectorant. Can also try deyg-jiv-qkbmkoc medicine with dextromethorphan which is a cough suppressant. GO TO THE EMERGENCY DEPARTMENT IF NOT IMPROVED OR WORSE; SHORTNESS OF BREATH, YOU FEEL ILL OR ANY QUESTIONS OR CONCERNS. - Billing Disposition and Condition Condition: STABLE Disposition: Home
== END 2019-04-18 08:44 | disposition home or self-care (01) ==
LOC: UCEAST 07:12
DX: J40 Bronchitis, not specified as acute or chronic (principal); J98.01 Acute bronchospasm; R09.81 Nasal congestion; Z91.040 Latex allergy status; Z85.038 Personal history of other malignant neoplasm of large intestine; Z87.891 Personal history of nicotine dependence
CPT/HCPCS: 71046; 99212; G0463